=== PATIENT | female | born 1975 | race Caucasian/White ===

== ENCOUNTER → 2017-01-28 | Outpatient (CLI) | payer BC ==
[~2017-01-28] MED LIST: ESTRADIOL PO; OXYC-57 PO
[2017-01-28 09:23] LABS: BASO % 0.2 %; BASO ABS # 0.01 K/uL (0-0.2); EOS % 4.8 %; HEMATOCRIT 31.6 % (37-47); IG% 0.3 %; LYMPH % 18.8 %; LYMPH ABS # 1.21 K/uL (1.2-3.4); MEAN CELL VOLUME 69.6 fL (80-100); MEAN CORPUSCULAR HEMOGLOBIN 20.3 pg (25-34); MEAN CORPUSCULAR HGB CONC 29.1 g/dl (32-36); MEAN PLATELET VOLUME 8.6 fL (7.4-10.4); MONO % 8.2 %; NEUT % 67.7 %; PLATELET COUNT 480 K/uL (130-400); RED BLOOD COUNT 4.54 M/uL (4.2-5.4); WHITE BLOOD COUNT 6.44 K/uL (4.8-10.8)
[2017-01-28 10:22] LABS: COMPLETE YES; MICROCYTOSIS PRESENT
== END | disposition home or self-care (01) ==
LOC: C.LAB1850 08:50
PROVIDERS: ATTEND Obstetrics & Gynecology
DX: Z01.812 Encounter for preprocedural laboratory examination (principal)

== ENCOUNTER → 2017-02-11 | Day surgery (SDC) | payer BC ==
[2017-01-29 07:33] VITALS: Ht 160 cm; Wt 65.5 kg
[~2017-02-11] VITALS: Ht 160 cm; Wt 65.5 kg
[~2017-02-11] MED LIST changes: +ATROPINE SULFATE 0.1 MG/ML 5ML SYR IV PRN; +EpHEDrine SULFATE INJ 50 MG/ML AMP IV PRN; +FENTANYL CITRATE INJ 50 MCG/1 ML 2 ML VIAL IV PRN; +FENTANYL CITRATE INJ 50 MCG/1 ML 2 ML VIAL ONE; +KETOROLAC TROMETHAMINE 30 MG/ML VIAL ONE; +LACTATED RINGER'S 1000ML 1,000 ML IV SCH; +LIDOCAINE HCL 2% 2 ML VIAL (20MG/ML) ONE; +LIDOCAINE/EPINEPHRINE 1% 20 ML VIAL INJ ONE; +MIDAZOLAM HCL 1 MG/ML 2ML VIAL ONE; +ONDANSETRON INJ 2 MG/ML 2 ML VIAL IV PRN; +ONDANSETRON INJ 2 MG/ML 2 ML VIAL ONE; +OXYCODONE/ACETAMINOPHEN 5-325 TAB PO PRN; +PROMETHAZINE HCL INJ 25 MG in SODIUM CHLORIDE 0.9% 50ML 50 ML IV PRN; +PROPOFOL IV EMULSION 10 MG/ML 20 ML VIAL IV ONE; +SILVER NITR/POTASSIUM NITRATE APPLICATOR ONE; +SODIUM CHLORIDE 0.9% 1000ML 1,000 ML IV SCH
[2017-02-11 11:42] VITALS: TEMP 37
--- NOTE | 2017-02-11 11:51 | History & Physical Bridge - [place] ---
H&P Re-Evaluation Bridge Note: I have examined the patient, reviewed the History & Physical and in the interval since the performance of the History & Physical I have noted the following changes of clinical significance: No changes noted
--- NOTE | 2017-02-11 12:25 | Discharge Instructions ---
Discharge Instructions Date of Service Feb 11, 2017. Admission Reason for Admission: Vaginal Polyp, Vaginal Pain Discharge Discharge Diagnosis / Problem: vaginal polyp Discharge Goals Goal(s): Routine recovery after surgery Activity Recommendations Activity Limitations: per Instructions/Follow-up section . Instructions / Follow-Up Instructions / Follow-Up ACTIVITY RECOMMENDATIONS: * Avoid tampons, douching, hot tubs, pools, and intercourse until bleeding has stopped. * May shower as usual. * No strenuous activity for 24-48 hours. After 24-48 hours, you may do anything you feel like doing (driving and sports are okay). SPECIAL CARE INSTRUCTIONS: Special Diet: * Mild nausea may occur in the immediate post-operative period. * Take clear liquids such as tea, cola or bouillon until all nausea has subsided; you may then resume your normal diet. Special Care: * Light bleeding and vaginal spotting can last from a few days to 3-4 weeks. Call your doctor if bleeding becomes heavier than the heaviest part of your period. * Check your temperature twice a day for one week. If it goes above 100.4 degrees Fahrenheit (38.0 Celsius), notify your doctor. * Call your doctor's office for an appointment for 6 weeks after your surgery. FOLLOW-UP VISIT: Call your doctor's office for an appointment for 6 weeks after your surgery. Current Hospital Diet Patient's current hospital diet: Discharge Diet Recommended Diet: Regular Diet Procedures Procedures Performed: Vaginal Polypectomy Pending Studies Studies pending at discharge: no Medical Emergencies . Who to Call and When: Medical Emergencies: If at any time you feel your situation is an emergency, please call 911 immediately. . Non-Emergent Contact Non-Emergency issues call your: Primary Care Provider . . "Provider Documentation" section prepared by Venkatesh King. VTE Core Measure Inpt VTE Proph given/why not?: Treatment not indicated
--- NOTE | 2017-02-11 12:26 | [facility] Post Operative Brief Note ---
Immediate Operative Summary Operative Date Feb 11, 2017. Pre-Operative Diagnosis Vaginal Polyp, Vaginal Pain Post-Operative Diagnosis Same Procedure(s) Performed Vaginal Polypectomy Surgeon Dr. King Traffic Enumerator Surgeon(s) None Estimated Blood Loss 5 mL Findings Friable vaginal polyp Specimens A. Vaginal Polyp Drains None Anesthesia Sedation Disposition Recovery Room / PACU
--- NOTE | 2017-02-11 12:53 | Anesthesia Progress Nt - [facility] ---
Anesthesia Post Op Note Date & Time Feb 11, 2017 at 12:53 Vital Signs Pain Intensity: 0 Vital Signs Past 12 Hours Date Time Temp Pulse Resp B/P Pulse Ox O2 Delivery O2 Flow Rate FiO2 02/11/17 11:42 37 104 16 97/71 98 Room Air Notes Mental Status: alert / awake / arousable, participated in evaluation Pt Amnestic to Procedure: Yes Nausea / Vomiting: adequately controlled Pain: adequately controlled Airway Patency, RR, SpO2: stable & adequate BP & HR: stable & adequate Hydration State: stable & adequate Anesthetic Complications: no major complications apparent
[2017-02-11 13:04] VITALS: BP 92/64; PULSE 74; O2SAT 100
--- NOTE | 2017-02-11 13:21 | OPERATIVE REPORT ---
DATE OF OPERATION: 02/11/2017 PREOPERATIVE DIAGNOSES: Vaginal polyp, vaginal pain. POSTOPERATIVE DIAGNOSIS: Same. PROCEDURE: Vaginal polypectomy. SURGEON: Dr. King. COUNTER MANAGER: None. ESTIMATED BLOOD LOSS: 5 mL FINDINGS: Friable vaginal polyp. SPECIMENS: Vaginal polyp. DRAINS: None. ANESTHETIC: Sedation and local. DISPOSITION: Recovery room. DESCRIPTION OF PROCEDURE: Indira was given sedation anesthetic was prepped and draped in usual fashion, identified the lesion and then injected it with Xylocaine with epinephrine at the base. Care was taken to avoid intravascular injection. The lesion was friable and initially when grasped started to follow apart, so was removed in several portions. I was able to cut it with Metzenbaums down at the base to ensure all visible tissue was removed including a small part of the mucosa as well the polyp originating from the patient's right posterior vaginal side. We then used a 3-0 Vicryl and closed in several [id number] interrupted sutures for hemostasis. After the procedure, sponge and instrument counts were correct and the patient was sent to recovery in stable condition. I attest to the content of the Intraoperative Record and any orders documented therein. Any exceptio ns are noted below.
== END | disposition home or self-care (01) ==
LOC: X.SURG 11:32
PROVIDERS: ATTEND Obstetrics & Gynecology
DX: N84.2 Polyp of vagina (principal); R10.2 Pelvic and perineal pain; N76.2 Acute vulvitis; M79.7 Fibromyalgia; D50.9 Iron deficiency anemia, unspecified

== ENCOUNTER → 2017-11-19 | Outpatient (CLI) | payer OTHER ==
[~2017-11-19] MED LIST changes: -ATROPINE SULFATE 0.1 MG/ML 5ML SYR IV PRN; +CHOL1000 PO; +ESTR1TAB2 PO; -EpHEDrine SULFATE INJ 50 MG/ML AMP IV PRN; -FENTANYL CITRATE INJ 50 MCG/1 ML 2 ML VIAL IV PRN; -FENTANYL CITRATE INJ 50 MCG/1 ML 2 ML VIAL ONE; -KETOROLAC TROMETHAMINE 30 MG/ML VIAL ONE; -LACTATED RINGER'S 1000ML 1,000 ML IV SCH; -LIDOCAINE HCL 2% 2 ML VIAL (20MG/ML) ONE; -LIDOCAINE/EPINEPHRINE 1% 20 ML VIAL INJ ONE; -MIDAZOLAM HCL 1 MG/ML 2ML VIAL ONE; -ONDANSETRON INJ 2 MG/ML 2 ML VIAL IV PRN; -ONDANSETRON INJ 2 MG/ML 2 ML VIAL ONE; -OXYCODONE/ACETAMINOPHEN 5-325 TAB PO PRN; -PROMETHAZINE HCL INJ 25 MG in SODIUM CHLORIDE 0.9% 50ML 50 ML IV PRN; -PROPOFOL IV EMULSION 10 MG/ML 20 ML VIAL IV ONE; +RMCI IV; -SILVER NITR/POTASSIUM NITRATE APPLICATOR ONE; -SODIUM CHLORIDE 0.9% 1000ML 1,000 ML IV SCH
--- NOTE | 2017-11-19 12:47 | MAMMOGRAPHY REPORT ---
BILATERAL FIRST EVER DIGITAL SCREENING MAMMOGRAM TOMOSYNTHESIS WITH CAD: 11/19/2017 CLINICAL HISTORY: Routine screening. Baseline exam. TECHNIQUE: Breast tomosynthesis in addition to standard 2D mammography was performed. Current study was also evaluated with a Computer Aided Detection (CAD) system. COMPARISON: No prior exams were available for comparison. BREAST COMPOSITION: The tissue of both breasts is heterogeneously dense, which may obscure small mas ses. FINDINGS: There is a round 4 mm focal asymmetry in the 12:00 middle one third of the left breast, fo r which additional spot compression tomosynthesis views and possible ultrasound are recommended. A p ossible grouping of faint punctate microcalcifications in the approximate 9:00 middle one third of th e right breast warranting additional spot magnification views. No other suspicious mass, architectural distortion or cluster of microcalcifications is seen. IMPRESSION: ACR BI-RADS CATEGORY 0: INCOMPLETE EVALUATION: NEED ADDITIONAL IMAGING EVALUATION The 4 mm focal asymmetry in the 12:00 left breast and possible faint grouping of microcalcifications in the 9:00 right breast need additional imaging evaluation. The patient will be called to schedule an appointment. Approximately 10% of breast cancers are not detected with mammography. A negative mammographic report should not delay biopsy if a clinically suggestive mass is present. Leeann Victoria M.D. ay/:11/19/2017 08:09:24 [employer] Director: Manuel HOFFMAN(Alysia)(M), [facility] letter sent: Addl Imaging 0 BI-RADS Code: ACR BI-RADS Category 0: Incomplete Evaluation: Need Additional Imaging Evaluation
== END | disposition home or self-care (01) ==
LOC: C.MAMM 07:47
PROVIDERS: ATTEND Obstetrics & Gynecology
DX: Z12.31 Encounter for screening mammogram for malignant neoplasm of breast (principal); R92.8 Other abnormal and inconclusive findings on diagnostic imaging of breast

== ENCOUNTER → 2017-11-30 | Outpatient (CLI) | payer OTHER ==
[~2017-11-30] MED LIST changes: -CHOL1000 PO; -ESTR1TAB2 PO; +OPTIRAY 320 IV PRN; -RMCI IV
--- NOTE | 2017-11-30 16:41 | DIAGNOSTIC IMAGING REPORT ---
CT ABD/PELVIS IV AND ORAL CONT (enterography study) CLINICAL HISTORY: Peroneal abscess COMPARISON STUDY: None. TECHNIQUE: Following the IV administration of 94 mL of Optiray-320, CT scan of the abdomen and pelvis was performed from the lung bases to the proximal femurs. Images are reviewed in the axial, sagittal, and coronal planes. IV contrast was administered without complication. A dose lowering technique was utilized adhering to the principles of ALARA. CT DOSE: 313.40 mGy.cm FINDINGS: Lower chest: The heart is normal in size and configuration, without pericardial effusion. The lung bases and pleural spaces are clear. Liver: The contrast-enhanced liver is normal in size, contour, and attenuation. There is no intrahepatic biliary ductal dilatation. The hepatic veins and portal veins are patent. Gallbladder: Surgically absent Spleen: Normal in size and attenuation. Pancreas: Unremarkable. Adrenal glands: Unremarkable. Kidneys: There is symmetric renal cortical enhancement. The kidneys are normal in size without hydronephrosis. Bowel: There are postsurgical changes of an apparent colectomy with creation of a rectal pouch. There are multiple mildly dilated fluid-filled small bowel loops. The rectal pouch measures 7.9 cm in diameter. There is a right sided perianal fistula extending to the right gluteal fold. There is a right posterior 17 mm perianal abscess. This may be intramural. There is a small focus of mild hyperenhancement of bowel wall thickening involving a right lower quadrant bowel loop. This may indicate Crohn's disease. Peritoneum: There is no intraperitoneal free air or abdominal ascites. Vasculature: The abdominal aorta is normal in course and caliber. Adenopathy: There are mildly prominent right iliac and inguinal lymph nodes. Also present are borderline enlarged mesenteric lymph nodes. Given the above-mentioned inflammatory findings, these may be reactive. Attention to these nodes is recommended on follow-up studies.. Pelvic viscera: The uterus is surgically absent. Skeletal structures: No destructive osseous lesions are seen. IMPRESSION: 1. Postsurgical changes of a total colectomy with creation of a rectal pouch 2. Focus of equivocal mild bowel wall thickening and hyperenhancement involving a right lower quadrant bowel loop. This could indicate active Crohn's. 3. 17 mm right posterior perianal abscess, possibly intramural 4. 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 5. Mild adenopathy, possibly reactive. Electronically signed by: Don Saini M.D. 11/30/2017 4:39 PM Dictated Date/Time: 11/30/2017 4:30 PM
== END | disposition home or self-care (01) ==
LOC: C.CTS 15:11
PROVIDERS: ATTEND Colon & Rectal Surgery
DX: L02.215 Cutaneous abscess of perineum (principal); Z90.49 Acquired absence of other specified parts of digestive tract

== ENCOUNTER → 2017-12-16 | Outpatient (CLI) | payer OTHER ==
[~2017-12-16] MED LIST changes: +GADAVIST IV PRN; +GLUCAGON FOR INJ 1 MG VIAL IM ONE; +NURSING VERBAL MED ORDER ONE; -OPTIRAY 320 IV PRN
--- NOTE | 2017-12-16 14:06 | DIAGNOSTIC IMAGING REPORT ---
MR ENTEROGRAPHY CLINICAL HISTORY: Crohn's disease. COMPARISON STUDY: Abdominal CT dated 11/30/2017. TECHNIQUE: MR enterography of the abdomen and pelvis is performed utilizing various T1 and T2 weighted sequences in the axial and coronal planes. Dynamic postcontrast sequences were obtained. Contrast-enhanced sequences were acquired following the IV administration of 6.5 cc of Gadavist. Intramuscular glucagon was also given for the procedure. The examination is significantly compromised by motion artifact. FINDINGS: Again seen are postoperative changes consistent with total colectomy and rectal pouch formation. There is significant fecal retention identified in the rectal pouch. There are mildly distended loops of small bowel identified in the right lower quadrant which contain air-fluid levels. These loops measure up to 5 cm in diameter and anastomosis was identified in the right lower quadrant on the recent CT scan. Mildly thick-walled and hyperemic loops of small bowel are suggested in the right lower quadrant. These are best seen on axial postcontrast image 27 of 96. This also corresponds to the CT findings from 11/30/2017. There is no convincing MRI evidence of enteroenteric fistula or abscess formation. No surrounding inflammatory change is identified. A right-sided perianal fistula is again noted. The liver, spleen, adrenal glands, kidneys, and pancreas are grossly unremarkable. No abdominal ascites is identified. No lymphadenopathy is suggested. The gallbladder is surgically absent. The abdominal aorta is normal in caliber. No pleural effusion is identified at the lung bases. The bony structures are grossly unremarkable. The bladder is normal as visualized. The uterus is surgically absent. No adnexal lesion is seen. IMPRESSION: 1. Motion compromised examination. 2. Again seen are postoperative changes from total colectomy with rectal pouch formation. Significant fecal retention is noted in the rectal pouch. 3. Mildly thick-walled and hyperemic loops of small bowel are suggested in the right lower quadrant. This was also seen by CT on 11/30/2017. Active Crohn's disease is not excluded. There is no significant inflammatory change in the surrounding mesentery. 4. There is no convincing evidence of enteroenteric fistula or abscess. 5. Mildly dilated loops of small bowel are present in the right lower quadrant with air-fluid levels. There is no associated mucosal thickening or hyperenhancement. This may be related to changes of denervation and colectomy. 6. A right-sided perianal fistula is again noted. Dictated: 12/16/2017 1:47 PM Transcribed: 12/16/2017 2:05 PM LEX_Anabel Electronically signed by: Nguyễn Fontaine M.D. 12/16/2017 2:06 PM Dictated Date/Time: 12/16/2017 1:47 PM
== END | disposition home or self-care (01) ==
LOC: C.MRI 09:22
PROVIDERS: ATTEND Internal Medicine Gastroenterology
DX: K50.90 Crohn's disease, unspecified, without complications (principal); K60.3 Anal fistula

== ENCOUNTER → 2018-07-07 | Outpatient (CLI) | payer OTHER ==
[~2018-07-07] MED LIST changes: +CHOL1000 PO; +ESTR1TAB2 PO; -ESTRADIOL PO; -GADAVIST IV PRN; -GLUCAGON FOR INJ 1 MG VIAL IM ONE; -NURSING VERBAL MED ORDER ONE; -OXYC-57 PO; +RMCI IV
--- NOTE | 2018-07-07 13:39 | MAMMOGRAPHY REPORT ---
BILATERAL DIGITAL DIAGNOSTIC MAMMOGRAM TOMOSYNTHESIS WITH CAD AND BILATERAL ULTRASOUND: 07/07/2018 CLINICAL HISTORY: Six-month follow-up of left breast masses and right breast calcifications. TECHNIQUE: Breast tomosynthesis in addition to standard 2D mammography was performed. Current study w as also evaluated with a Computer Aided Detection (CAD) system. Bilateral CC and MLO 2D and tomosynt hesis images, spot compression right cc tomosynthesis images, and spot magnification right cc and ML views were obtained. COMPARISON: Comparison is made to exams dated: 11/25/2017 mammogram and 11/19/2017 mammogram - [facility]. BREAST COMPOSITION: The tissue of both breasts is heterogeneously dense, which may obscure small mass es. FINDINGS: Spot magnification views of the right breast demonstrate a small cluster of very faint punctate calci fications in the right lateral breast, best seen on the full field CC view. The calcifications are s table to less prominent compared to the November 2017 exam and are probably benign and likely represen t fibrocystic changes. An asymmetry is seen within the right posterior breast along the posterior nipple line on the cc view , which is less prominent on the spot compression view and likely represents normal fibroglandular ti ssue although ultrasound was performed. A partially circumscribed and partially obscured round 7 mm mass is again noted within the left posterior breast on the cc view along the posterior nipple line. The remainder of both breasts are stable mammographically compared to prior exams, without suspiciou s masses, calcifications, or areas of architectural distortion noted. Targeted ultrasound was performed of the left breast in the region of the masses for which follow-up was recommended. A few small anechoic benign cysts were again noted within the left 12:00 breast, 1 of which likely corresponds with the partially circumscribed mammographic mass. In the left 11:00 br east, 2 cm from the nipple, again noted is an oval circumscribed hypoechoic mass which measures 6 x 4 x 5 mm, and is not significantly changed compared to the November 2017 exam when accounting for sligh t differences in measurement technique. The mass is probably benign and likely represents a complica janie cyst versus a benign-appearing solid mass such as a fibroadenoma. In the left 5:00 breast, appro ximately 2 cm from the nipple, there is a lobulated anechoic circumscribed 3 x 2 mm mass, which is no t significantly changed and is consistent with a benign cyst. Another small circumscribed lobulated anechoic cyst measuring 4 x 2 x 4 mm is seen within the left 5:00 breast, 3 cm from the nipple. Targeted ultrasound was performed of the right 6:00 and subareolar breast in the region of the mammog raphic asymmetry, which shows no suspicious masses or other suspicious sonographic abnormalities. A few small anechoic benign cysts were seen within the right subareolar breast during the ultrasound ex am. IMPRESSION: ACR-BI-RADS CATEGORY 3: PROBABLY BENIGN, ULTRASOUND ACR-BI-RADS CATEGORY 3: PROBABLY SHANNON GN 1. Small cluster of very faint punctate calcifications in the right lateral breast is stable to less prominent compared to the prior exam and is probably benign and likely represents fibrocystic change s. Recommend follow-up diagnostic tomosynthesis mammograms of the right breast in 6 months to confir m longer stability on spot magnification views. 2. Multiple small benign cysts seen during the ultrasound exam. Hypoechoic circumscribed 6 mm mass in the left 11:00 breast is not significantly changed and is probably benign and likely represents a complicated cyst. Recommend follow-up diagnostic tomosynthesis mammograms and repeat targeted ultras ound of the left breast in 6 months to confirm stability. Overall, recommend bilateral diagnostic tomosynthesis mammograms and targeted ultrasound of the left breast in 6 months. The patient has been verbally notified of the results. Some breast cancers are not detected with mammography. A negative mammographic report should not char y biopsy if a clinically suggestive mass is present. Fabiana Madrid M.D. ah/:07/07/2018 10:27:15 Pulmonary Nurse Practitioner: RT Clarissa(R)(M), [facility]; Fabiana Madrid MD, [facility] letter sent: Follow Up Recommended 3 OVERALL STUDY BIRADS: 3 Probably benign
== END | disposition home or self-care (01) ==
LOC: C.MAMM 08:03
PROVIDERS: ATTEND Obstetrics & Gynecology
DX: R92.1 Mammographic calcification found on diagnostic imaging of breast (principal); N63.22 Unspecified lump in the left breast, upper inner quadrant